=== PATIENT | female | born 1975 | race Caucasian/White ===

== ENCOUNTER → 2017-11-24 | Outpatient (CLI) | payer OTHER ==
[~2017-11-24] MED LIST: ADIPEX-P37.5 MG; ASPIR 8181 MG PO; AUGMENTIN 875875 MG PO; BENTYL 20 MG TA20 M1 PO; BENTYL20 MG PO; BUTALB-APAP-CA1 EACH PO; CIPROFLOXACIN500 M1 PO; IBUPROFEN 200200 M1 PO; IBUPROFEN 800800 MG PO; NORCO 5-325 TA1 EACH PO; PERCOCET 5-3251 EACH PO; PHENERGAN 25 MG25 M1 PO; PHENTERMINE H37.5 MG PO; PREDNISOLONE 5 M5 M1 PO; PRENATAL PO; PREVACID 30MG C30 M1 PO; ROXICODONE5 M2 PO; ULTRAM 50MG TAB50 MG PO; VALIUM2 MG PO; VALIUM5 MG PO; VIGAMOX3 ML OP; ZOFRAN ODT4 MG PO; ZPAK PO
== END ==
LOC: M.ULTRA 10:39
DX: K76.0 Fatty (change of) liver, not elsewhere classified (principal); R60.9 Edema, unspecified; R63.5 Abnormal weight gain; G25.0 Essential tremor; Z90.49 Acquired absence of other specified parts of digestive tract

== ENCOUNTER → 2019-02-26 | Emergency (ER) | payer OTHER ==
[~2019-02-26] VITALS: Ht 154.9 cm; Wt 83.9 kg
[~2019-02-26] MED LIST changes: +CHLORTHALIDONE50 MG PO; +CIPRO500 MG PO; +DIFLUCAN200 MG PO; +FLAGYL500 M1 PO; +MYSOLINE50 MG PO; +NORCO 5-325 TA1 EAC1 PO; +PROPRANOLOL 1010 MG PO; +UNICOMPLEX M TA1 TA1 PO; +VITAMIN B-12500 MCG PO; +VYVANSE10 MG PO
[2019-02-26 18:47] LABS: ABSOLUTE BASOPHILS 0.1 thou/uL (0.0-0.2); ABSOLUTE EOSINOPHILS 0.2 thou/uL (0.0-0.7); ABSOLUTE LYMPHOCYTES 2.6 thou/uL (0.8-5.3); ABSOLUTE MONOCYTES 0.6 thou/uL (0.0-1.2); BASOPHILS 0.5 %; EOSINOPHILS 2.2 %; HEMOGLOBIN 13.7 gm/dL (12.0-15.0); LYMPHOCYTES 22.2 %; MCH 30.5 pg (26.0-34.0); MCHC 34.2 g/dL (28.0-37.0); MCV 89.2 fL (80.0-100.0); MONOCYTES 5.6 %; MPV 7.7 fl. (7.2-11.1); NUCLEATED RBCS 0 /100WBC; PLATELET COUNT* 353 thou/uL (150-400); POLYS 69.5 %; RBC 4.48 mil/uL (4.20-5.00); RDW-CV 12.5 % (10.5-14.5); WBC 11.5 thou/uL (4.0-11.0)
[2019-02-26 18:51] LABS: CALCIUM 8.8 mg/dL (8.5-10.1); CREATININE 0.7 mg/dL (0.6-1.3); POTASSIUM 3.3 mmol/L (3.5-5.1)
[2019-02-26 18:55] LABS: ALBUMIN 3.6 g/dL (3.4-5.0); TOTAL BILIRUBIN 0.4 mg/dL (<0.1-1.0)
[2019-02-26 19:50] LABS: URINE BILIRUBIN NEGATIVE (Negative); URINE BLOOD NEGATIVE (Negative); URINE CLARITY CLEAR; URINE COLOR YELLOW; URINE GLUCOSE-RANDOM NEGATIVE (Negative); URINE KETONES NEGATIVE (Negative); URINE LEUKOCYTES-REFLEX TRACE (Negative); URINE NITRITE-REFLEX NEGATIVE (Negative); URINE PROTEIN NEGATIVE (Negative); URINE UROBILINOGEN 0.2 E.U./dl (0.2-1.0)
[2019-02-26 20:13] LABS: BACTERIA-REFLEX 1-9 Few /HPF (None Seen); CASTS None Seen /LPF (None Seen); CRYSTALS None Seen /LPF (None Seen); SQUAMOUS 0-3 Few /LPF (0-3); URINE RBC 0-2 Rare /HPF (0-2); URINE WBC-REFLEX 0-5 Rare /HPF (0-5)
[2019-02-26 21:26] VITALS: BP 113/62
--- NOTE | 2019-02-27 10:25 | EKG ---
[place] [address] ELECTROCARDIOGRAM REPORT Name: NATTY CONNOR Pay[place] Room: [facility]#: [id number] Admission: 02/26/19 Attend Phys: Discharge: Date of : 77 Report #: [id number] THIS REPORT FOR: //name// [facility] ED Test Date: 2019-02-26 Test Time: 18:30:06 Pat Name: NATTY CONNOR Department: Room: Gender: F Logistics Program Manager: ev : 1975 Requested By: Whitley Snyder Order Number: [id number] Reading MD: Wilber Villanueva Measurements Intervals [place] Rate: 69 P: 43 NM: 135 QRS: 22 QRSD: 89 T: 44 QT: 382 QTc: 410 Interpretive Statements Sinus rhythm Compared to ECG 04/21/2014 08:46:53 No significant changes Electronically Signed On 02-27-2019 10:24:44 CDT by Wilber Villanueva [email or web address] <ELECTRONICALLY SIGNED> By: Wilber Villanueva MD, [facility] 02/27/19 1024 1830 1830 Wilber Villanueva MD, FACC /EPI
== END ==
LOC: M.ERS 17:48
PROVIDERS: Physician Assistant
DX: K57.32 Diverticulitis of large intestine without perforation or abscess without bleeding (principal); Z90.49 Acquired absence of other specified parts of digestive tract; Z90.89 Acquired absence of other organs; Z98.890 Other specified postprocedural states; Z88.1 Allergy status to other antibiotic agents

== ENCOUNTER → 2019-04-25 | Outpatient (CLI) | payer OTHER | LOC: M.LAB 01:20 | DX: E87.6 Hypokalemia (principal) ==

== ENCOUNTER 2021-06-04 12:37 | Inpatient (IN) | payer OTHER ==
[~2021-06-04] VITALS: Ht 154.9 cm; Wt 92.1 kg
[2021-06-04 12:49] VITALS: BP 126/58
[2021-06-04 13:28] LABS: ABSOLUTE LYMPHOCYTES 0.8 thou/uL (0.8-5.3); ABSOLUTE MONOCYTES 0.1 thou/uL (0.0-1.2); ABSOLUTE NEUTROPHILS 1.8 thou/uL (1.6-8.1); BASOPHILS 0.3 %; EOSINOPHILS 0.2 %; HEMATOCRIT 35.6 % (37.0-47.0); HEMOGLOBIN 12.3 gm/dL (12.0-15.0); LYMPHOCYTES 30.4 %; MCH 29.6 pg (26.0-34.0); MCHC 34.5 g/dL (28.0-37.0); MCV 85.8 fL (80.0-100.0); MONOCYTES 2.9 %; MPV 8.1 fl. (7.2-11.1); NUCLEATED RBCS 0 /100WBC; PLATELET COUNT* 89 thou/uL (150-400); POLYS 66.2 %; RBC 4.15 mil/uL (4.20-5.00); RDW-CV 12.9 % (10.5-14.5); WBC 2.7 thou/uL (4.0-11.0)
[2021-06-04 13:37] LABS: ANION GAP 7 mmol/L (7-16); BUN 8 mg/dL (7-18); CALCIUM 7.8 mg/dL (8.5-10.1); CHLORIDE 105 mmol/L (98-107); CO2 27 mmol/L (21-32); CREATININE 0.8 mg/dL (0.6-1.3); GLUCOSE 112 mg/dL (70-99); POTASSIUM 3.3 mmol/L (3.5-5.1); SODIUM 139 mmol/L (136-145)
[2021-06-04 13:51] LABS: ALBUMIN 2.5 g/dL (3.4-5.0); ALKALINE PHOSPHATASE 227 U/L (46-116); CK-MB MASS < 0.5 ng/mL (<0.5-3.6); MAGNESIUM 1.9 mg/dL (1.8-2.4); NT-PRO BRAIN NAT PEPTIDE 140 pg/mL (<300); SGOT 90 U/L (15-37); SGPT 138 U/L (30-65); TOTAL BILIRUBIN 0.2 mg/dL (<0.1-1.0); TOTAL PROTEIN 5.8 g/dL (6.4-8.2)
[2021-06-04 17:54] LABS: INFLUENZA A ANTIGEN Negative (Negative); INFLUENZA B ANTIGEN Negative (Negative)
[2021-06-04 20:54] VITALS: BP 124/65
[2021-06-04 21:38] VITALS: BP 123/69
[2021-06-05 04:41] VITALS: BP 122/72
[2021-06-05 08:00] VITALS: BP 105/70
[2021-06-05] MEDS ORDERED: IBUPROFEN 800800 M1 PO (09:23)
[2021-06-05 09:48] LABS: HEMATOCRIT 35.1 % (37.0-47.0); HEMOGLOBIN 11.9 gm/dL (12.0-15.0); MCH 29.7 pg (26.0-34.0); MCV 87.4 fL (80.0-100.0); MPV 7.9 fl. (7.2-11.1); RBC 4.02 mil/uL (4.20-5.00); WBC 4.6 thou/uL (4.0-11.0)
[2021-06-05 09:56] LABS: ALBUMIN 2.5 g/dL (3.4-5.0); CALCIUM 7.6 mg/dL (8.5-10.1); CREATININE 0.7 mg/dL (0.6-1.3); MAGNESIUM 1.7 mg/dL (1.8-2.4); POTASSIUM 3.8 mmol/L (3.5-5.1); TOTAL BILIRUBIN 0.3 mg/dL (<0.1-1.0)
[2021-06-05 11:56] VITALS: BP 94/55
--- NOTE | 2021-06-05 15:18 | EKG ---
[place] [address] ELECTROCARDIOGRAM REPORT Name: NATTY CONNOR Room: [address] ADM IN M.R.#: [id number] Admission: 06/04/21 Attend Phys: Ivone Ball, Discharge: Date of : 77 Date of Service: 06/04/[address] [facility] Report #: [id number] THIS REPORT FOR: //name// [facility] ED Test Date: 2021-06-04 Test Time: 13:00:05 Pat Name: NATTY CONNOR Department: Room: [facility] Gender: F Admissions Coordinator: [place] : 1975 Requested By: Vic Turpin Order Number: [id number] MD: Juan Carlos Trujillo Measurements Intervals [place] Rate: 98 P: 48 UT: 125 QRS: 42 QRSD: 80 T: 34 QT: 332 QTc: 424 Interpretive Statements Sinus rhythm Baseline wander in lead(s) I Compared to ECG 02/26/2019 18:30:06 No significant changes Electronically Signed On 06-05-2021 15:17:48 [employer] by Juan Carlos Trujillo [email or web address] <ELECTRONICALLY SIGNED> By: Juan Carlos Trujillo MD, FACC 06/05/21 1517 1300 1300 Juan Carlos Trujillo MD, FAC /EPI
[2021-06-05 15:55] VITALS: BP 106/62
[2021-06-05 20:00] VITALS: BP 99/61
[2021-06-06] VITALS: BP 103/64
[2021-06-06 04:00] VITALS: BP 112/67
[2021-06-06 05:24] LABS: HEMATOCRIT 34.8 % (37.0-47.0); HEMOGLOBIN 11.8 gm/dL (12.0-15.0); MCH 29.4 pg (26.0-34.0); MCHC 33.8 g/dL (28.0-37.0); MCV 86.8 fL (80.0-100.0); MPV 7.8 fl. (7.2-11.1); RBC 4.01 mil/uL (4.20-5.00); RDW-CV 13.1 % (10.5-14.5); WBC 5.5 thou/uL (4.0-11.0)
[2021-06-06 05:43] LABS: ALBUMIN 2.4 g/dL (3.4-5.0); CALCIUM 7.8 mg/dL (8.5-10.1); CREATININE 0.7 mg/dL (0.6-1.3); POTASSIUM 4.1 mmol/L (3.5-5.1); TOTAL BILIRUBIN 0.2 mg/dL (<0.1-1.0); TOTAL PROTEIN 5.7 g/dL (6.4-8.2)
[2021-06-06 08:09] VITALS: BP 106/70
[2021-06-06 12:00] VITALS: BP 98/52
[2021-06-06 15:35] VITALS: BP 96/53
[2021-06-07] VITALS: BP 125/77
[2021-06-07 04:00] VITALS: BP 85/57
[2021-06-07 06:00] LABS: HEMATOCRIT 35.7 % (37.0-47.0); HEMOGLOBIN 12.3 gm/dL (12.0-15.0); MCH 29.4 pg (26.0-34.0); MCHC 34.4 g/dL (28.0-37.0); MCV 85.7 fL (80.0-100.0); MPV 7.3 fl. (7.2-11.1); RBC 4.16 mil/uL (4.20-5.00); RDW-CV 13.3 % (10.5-14.5); WBC 6.3 thou/uL (4.0-11.0)
[2021-06-07 06:08] LABS: ALBUMIN 2.4 g/dL (3.4-5.0); CREATININE 0.8 mg/dL (0.6-1.3); MAGNESIUM 1.6 mg/dL (1.8-2.4); POTASSIUM 3.7 mmol/L (3.5-5.1); TOTAL BILIRUBIN 0.3 mg/dL (<0.1-1.0); TOTAL PROTEIN 5.8 g/dL (6.4-8.2)
[2021-06-07 08:01] VITALS: BP 109/68
[2021-06-07] MEDS ORDERED: TESSALON PERLE100 MG PO (08:38)
[2021-06-07] MEDS ORDERED: DEXAMETHASONE 22 M1 PO (08:38)
[2021-06-07] MEDS ORDERED: AZITHROMYCIN500 MG PO (08:38)
[2021-06-07] MEDS ORDERED: CEFDINIR300 MG PO (08:38)
[2021-06-07] MEDS ORDERED: MUCINEX DM ER1 EACH PO (11:08)
[2021-06-07 11:30] VITALS: BP 103/63
[2021-06-07] MEDS ORDERED: COLACE100 MG PO (14:17)
[2021-06-07 17:54] VITALS: BP 112/64
[2021-06-07 19:50] VITALS: BP 121/69
[2021-06-08] VITALS: BP 107/66
[2021-06-08 04:00] VITALS: BP 109/68
[2021-06-08 08:00] VITALS: BP 108/69
[2021-06-08 12:12] VITALS: BP 131/78
[2021-06-08 16:06] VITALS: BP 101/61
[2021-06-08 20:05] VITALS: BP 117/64
[2021-06-09] VITALS (7 sets, daily range): BP systolic 112–121; BP diastolic 64–76
[2021-06-09 04:39] LABS: HEMATOCRIT 38.3 % (37.0-47.0); HEMOGLOBIN 13.1 gm/dL (12.0-15.0); MCH 29.1 pg (26.0-34.0); MCHC 34.2 g/dL (28.0-37.0); MPV 7.3 fl. (7.2-11.1); RBC 4.5 mil/uL (4.20-5.00); RDW-CV 12.9 % (10.5-14.5); WBC 7.7 thou/uL (4.0-11.0)
[2021-06-09 04:44] LABS: ALBUMIN 2.5 g/dL (3.4-5.0); CALCIUM 8.6 mg/dL (8.5-10.1); CREATININE 0.7 mg/dL (0.6-1.3); MAGNESIUM 1.9 mg/dL (1.8-2.4); TOTAL BILIRUBIN 0.3 mg/dL (<0.1-1.0); TOTAL PROTEIN 6.4 g/dL (6.4-8.2)
[2021-06-10] VITALS: BP 130/66
[2021-06-10 04:38] VITALS: BP 117/75
[2021-06-10 08:00] VITALS: BP 129/84
[2021-06-10 12:00] VITALS: BP 105/72
[2021-06-10 16:00] VITALS: BP 111/69
[2021-06-10 21:30] VITALS: BP 111/69
[2021-06-11] VITALS: BP 125/77
[2021-06-11 03:58] LABS: HEMATOCRIT 39.5 % (37.0-47.0); HEMOGLOBIN 13.7 gm/dL (12.0-15.0); MCH 29.2 pg (26.0-34.0); MCHC 34.6 g/dL (28.0-37.0); MCV 84.6 fL (80.0-100.0); MPV 6.7 fl. (7.2-11.1); RBC 4.67 mil/uL (4.20-5.00); WBC 11.1 thou/uL (4.0-11.0)
[2021-06-11 04:00] VITALS: BP 130/88
[2021-06-11 04:43] LABS: ALBUMIN 2.6 g/dL (3.4-5.0); CALCIUM 8.7 mg/dL (8.5-10.1); CREATININE 0.8 mg/dL (0.6-1.3); MAGNESIUM 1.8 mg/dL (1.8-2.4); POTASSIUM 3.7 mmol/L (3.5-5.1); TOTAL BILIRUBIN 0.4 mg/dL (<0.1-1.0); TOTAL PROTEIN 6.4 g/dL (6.4-8.2)
[2021-06-11 11:30] VITALS: BP 116/70
[2021-06-11] MEDS ORDERED: PROTONIX40 M4 PO (12:09)
[2021-06-11] MEDS ORDERED: DEXAMETHASONE1 MG PO (12:09)
[2021-06-11] MEDS ORDERED: DOXYCYCLINE 10100 MG PO (12:09)
[2021-06-11 12:48] VITALS: BP 110/68
[2021-06-11 16:12] VITALS: BP 110/68
[2021-06-11 18:18] VITALS: BP 110/68
== END 2021-06-11 19:00 | disposition home or self-care (01) | DRG 177 ==
LOC: M.ERS 12:37 → M.TBA-ER 14:31 → M.ORTHSURG 14:31
PROVIDERS: Family Medicine; ADMIT Internal Medicine; ATTEND Internal Medicine
PROC: XW033E5 Introduction of Remdesivir Anti-infective into Peripheral Vein, Percutaneous Approach, New Technology Group 5 (ICD-10-PCS; principal; 2021-06-04)
PROC: 5A0935A Assistance with Respiratory Ventilation, Less than 24 Consecutive Hours, High Flow/Velocity Cannula (ICD-10-PCS; 2021-06-06)
PROC: 05HF33Z Insertion of Infusion Device into Left Cephalic Vein, Percutaneous Approach (ICD-10-PCS; 2021-06-07)
PROC: 5A0935A Assistance with Respiratory Ventilation, Less than 24 Consecutive Hours, High Flow/Velocity Cannula (ICD-10-PCS; 2021-06-08)
PROC: 5A0935A Assistance with Respiratory Ventilation, Less than 24 Consecutive Hours, High Flow/Velocity Cannula (ICD-10-PCS; 2021-06-09)
DX: U07.1 COVID-19 (principal); J96.01 Acute respiratory failure with hypoxia; J15.6 Pneumonia due to other Gram-negative bacteria; R73.9 Hyperglycemia, unspecified; E87.6 Hypokalemia; D69.6 Thrombocytopenia, unspecified; D72.819 Decreased white blood cell count, unspecified; Z90.49 Acquired absence of other specified parts of digestive tract; Z88.1 Allergy status to other antibiotic agents; Z87.891 Personal history of nicotine dependence; Z79.899 Other long term (current) drug therapy